=== PATIENT | male | born 1935 | race Caucasian/White ===

== ENCOUNTER 2018-10-14 11:13 | Observation (INO) | payer MEDICARE, OTHER ==
--- NOTE | 2018-10-14 11:40 | EDM.PDOC ---
ED HPI GENERAL MEDICAL PROBLEM - General Chief Complaint: Medication Administration Stated Complaint: UNKNOWN-AMBULANCE Time Seen by Provider: 10/14/18 11:25 Source of Information: Reports: Patient, EMS, Family History Limitations: Reports: No Limitations - History of Present Illness INITIAL COMMENTS - FREE TEXT/NARRATIVE: Patient comes emergency Department today by ambulance from home with an accidental medication administration. The patient has a history of dementia and lives at home with his . This morning he accidentally took his 's medication instead of his own. According to the he took 1 tablet of 50 mg metoprolol, 1 tablet of 40 mg lisinopril. This was an accidental ingestion. This happened about 8:00 this morning. They did not call the ambulance until later when it was difficult to wake him up. Upon EMS arrival the patient had a decreased level of consciousness and was difficult to arouse and did not respond to a painful sternal rub. Eventually he awoke on his own. While in the emergency room patient is asymptomatic. He denies any weakness dizziness lightheadedness. No chest pain or palpitations or shortness of breath. He states "I feel just fine". He has been receiving Iron transfusion recently for a lower GI bleed and not received any blood. Refuses to have a colonoscopy. Never had an RBC tagged. - Related Data Allergies Allergy/AdvReac Type Severity Reaction Status Date / Time No Known Allergies Allergy Verified 10/14/18 11:23 Home Meds: Home Meds Cholecalciferol (Vitamin D3) [Vitamin D3] 5,000 units PO DAILY 01/08/16 [History ] Cyanocobalamin (Vitamin B12) [Vitamin B12] 1,000 mcg PO DAILY 01/08/16 [History] Multivitamin [Multivitamins] 1 each PO DAILY 01/08/16 [History] Ascorbic Acid 500 mg PO DAILY 06/27/18 [History] Ferrous Sulfate 325 mg PO DAILY 06/27/18 [History] Finasteride [Proscar] 5 mg PO DAILY 06/27/18 [History] Tamsulosin HCl 0.8 mg PO DAILY 06/27/18 [History] Past Medical History HEENT History: Reports: Impaired Vision Other HEENT History: WEARS READERS. TOP DENTURE PLATE Cardiovascular History: Reports: High Cholesterol Respiratory History: Reports: None Gastrointestinal History: Reports: Colon Polyp, Other (See Below) Other Gastrointestinal History: occult blood in stools Genitourinary History: Reports: BPH, Prostate Disorder, Urinary Incontinence, Other (See Below) Other Genitourinary History: nocturia Musculoskeletal History: Reports: Arthritis, Back Pain, Chronic, Other (See Below) Other Musculoskeletal History: ruptured disk in lower back Neurological History: Reports: Alzheimers Disease Psychiatric History: Reports: Anxiety, Dementia Endocrine/Metabolic History: Reports: Vitamin D Deficiency Hematologic History: Reports: Anemia, B12 Deficiency, Blood Transfusion(s), Iron Deficiency Immunologic History: Reports: None Oncologic (Cancer) History: Reports: None Dermatologic History: Reports: Other (See Below) Other Dermatologic History: actinic keratosis - Infectious Disease History Infectious Disease History: Reports: Chicken Pox, Measles - Past Surgical History Head Surgeries/Procedures: Reports: None HEENT Surgical History: Reports: Cataract Surgery, Oral Surgery Cardiovascular Surgical History: Reports: None Respiratory Surgical History: Reports: None GI Surgical History: Reports: Appendectomy, Colonoscopy, EGD, Polypectomy Male Surgical History: Reports: Vasectomy Endocrine Surgical History: Reports: None Neurological Surgical History: Reports: None Musculoskeletal Surgical History: Reports: None Oncologic Surgical History: Reports: None Dermatological Surgical History: Reports: None Social & Family History - Family History Family Medical History: Noncontributory - Tobacco Use Smoking Status *Q: Former Smoker Used Tobacco, but Quit: Yes Month/Year Tobacco Last Used: 50 years ago - Caffeine Use Caffeine Use: Reports: Coffee Other Caffeine Use: 1-2 cups daily - Recreational Drug Use Recreational Drug Use: No ED ROS GENERAL - Review of Systems Review Of Systems: ROS reveals no pertinent complaints other than HPI. ED EXAM, GENERAL - Physical Exam Exam: See Below Exam Limited By: Altered Mental Status (History of dementia) General Appearance: Alert, No Apparent Distress Eye Exam: Bilateral Eye: EOMI, PERRL Ears: Normal External Exam, Normal TMs Nose: Normal Inspection, Normal Mucosa Throat/Mouth: Normal Inspection, Normal Lips Head: Atraumatic, Normocephalic Neck: Normal Inspection, Supple, Non-Tender Respiratory/Chest: No Respiratory Distress, Lungs Clear, Normal Breath Sounds, No Accessory Muscle Use, Chest Non-Tender Cardiovascular: Normal Peripheral Pulses, Regular Rate, Rhythm Peripheral Pulses: 2+: Radial (L), Radial (R), Posterior Tibial (L), Posterior Tibial (R), Dorsalis Pedis (L), Dorsalis Pedis (R) GI/Abdominal: Normal Bowel Sounds, Soft, Non-Tender Back Exam: Normal Inspection, Full Range of Motion Extremities: Normal Inspection, Non-Tender, Normal Capillary Refill Neurological: Alert, Normal Reflexes, Confused (History of dementia. Recognizes his , neighbor knows that he is in the hospital and [place]. Confused on the date and time.) Psychiatric: Flat Affect Skin Exam: Dry, Intact, Cool, Pallor (Quite pale from head to toe. ) Lymphatic: No Adenopathy EKG INTERPRETATION EKG Date: 10/14/18 Time: 11:41 Rhythm: NSR Rate (Beats/Min): 84 [place]: Normal P-Wave: Present QRS: Normal ST-T: Normal QT: Normal Course - Vital Signs Last Recorded V/S: Last Vital Signs Temp 36.8 C 10/14/18 12:46 Pulse 65 10/14/18 12:46 Resp 17 10/14/18 12:46 BP 92/39 L 10/14/18 12:46 Pulse Ox 100 10/14/18 12:46 - Orders/Labs/Meds Orders: Active Orders 24 hr Category Date Time Status EKG 12 Lead [EKG Documentation Completion] [RC] URGENT Care 10/14/18 11:33 Active TYPE AND SCREEN [BBK] Stat Lab 10/14/18 11:41 Received Lactated Ringers [Ringers, Lactated] 1,000 ml Med 10/14/18 12:43 Active IV .BOLUS Medication Orders Lactated Ringer's (Ringers, Lactated) 1,000 mls @ 500 mls/hr IV .BOLUS ONE Stop: 10/14/18 14:42 Last Admin: 10/14/18 12:47 Dose: 250 mls/hr Labs: Laboratory Tests 10/14/18 10/14/18 10/14/18 Range/Units 11:18 11:41 11:41 WBC 13.1 H (5.0-10.0) 10^3/uL RBC 3.63 L (4.6-6.2) 10^6/uL Hgb 7.8 L (14.0-18.0) g/dL Hct 25.8 L (40.0-54.0) % MCV 71.1 L D (80-100) fL MCH 21.5 L (27.0-34.0) pg MCHC 30.2 L (33.0-35.0) g/dL Plt Count 589 H (150-450) 10^3/uL Neut % (Auto) 87.2 H (42.2-75.2) % Lymph % (Auto) 8.7 L (20.5-50.1) % [place] % (Auto) 3.7 (2-8) % Eos % (Auto) 0.2 L (1.0-3.0) % Baso % (Auto) 0.2 (0.0-1.0) % Sodium 128 L (135-145) mmol/L Potassium 4.0 (3.6-5.0) mmol/L Chloride 95 L (101-111) mmol/L Carbon Dioxide 21.0 (21.0-31.0) mmol/L Anion Gap 16.0 BUN 14 (7-18) mg/dL Creatinine 1.1 (0.6-1.3) mg/dL Est Cr Clr Drug Dosing 49.99 mL/min Estimated GFR (MDRD) > 60 BUN/Creatinine Ratio 12.72 Glucose 161 H (74-105) mg/dL Calcium 8.2 L (8.4-10.2) mg/dl Total Bilirubin 0.4 (0.2-1.0) mg/dL AST 16 (10-42) IU/L ALT 11 (10-60) IU/L Alkaline Phosphatase 78 (42-121) IU/L Total Protein 7.0 (6.7-8.2) g/dl Albumin 2.6 L (3.2-5.5) g/dl Globulin 4.4 Albumin/Globulin Ratio 0.59 Urine Color Yellow (YELLOW) Urine Appearance Clear (CLEAR) Urine pH 7.0 (5.0-9.0) Ur Specific [place] 1.015 (1.005-1.030) Urine Protein Negative (NEGATIVE) Urine Glucose (UA) Negative (NEGATIVE) Urine Ketones Negative (NEGATIVE) Urine Occult Blood Negative (NEGATIVE) Urine Nitrite Negative (NEGATIVE) Urine Bilirubin Negative (NEGATIVE) Urine Urobilinogen 0.2 (0.2-1.0) mg/dL Ur Leukocyte Esterase Negative (NEGATIVE) Urine RBC Not seen /HPF Urine WBC Not seen (0-5/HPF) /HPF Ur Epithelial Cells Rare /HPF Amorphous Sediment Few (0/HPF) /HPF Urine Bacteria Few (0-FEW/HPF) /HPF Hyaline Casts Moderate H /LPF Urine Mucus Many H /LPF Meds: Medications Generic Name Dose Route Start Last Admin Trade Name Kerry PRN Reason Stop Dose Admin Lactated Ringer's 1,000 mls @ 500 mls/hr 10/14/18 12:43 10/14/18 12:47 Ringers, Lactated IV 10/14/18 14:42 250 mls/hr .BOLUS ONE Administration Discontinued Medications Generic Name Dose Route Start Last Admin Trade Name Freq PRN Reason Stop Dose Admin Lactated Ringer's 1,000 mls @ 250 mls/hr 10/14/18 12:54 10/14/18 12:59 Ringers, Lactated IV 10/14/18 16:53 Not Given .BOLUS ONE - Re-Assessments/Exams Free Text/Narrative Re-Assessment/Exam: 10/14/18 13:29 The patient is quite pale on presentation but has been receiving iron infusions over the past couple of weeks due to low volume blood loss due to a lower GI bleed for which he refuses a colonoscopy. He is alert and appropriate for his demented state. I did speak with poison control who advised that his peak time of the metoprolol has arty taken effect and as long as he is asymptomatic and be discharged home. His laboratory evaluation is rather unremarkable other than for anemia of hemoglobin 7.8. His most recent one was 7.2 September 21 of this month. His blood pressure is somewhat hypotensive with a systolic in the low 90s. In intermittent middle 80s systolically. He was given a 500 mL bolus with improvement of his blood pressure. I also typed and screened him. Due to his age fragility concerns of hypotension falls do not feel comfortable discharging this patient at the time. I spoke with the hospitalist cost reduction engineer who accepted the patient under his services. Patient and family are comfortable with this plan and her questions are answered. Departure - Departure Time of Disposition: 13:00 Disposition: Refer to Observation Clinical Impression: Lower gastrointestinal bleeding Accidental medication overdose Qualifiers: Encounter type: initial encounter Qualified Code(s): T50.901A - Poisoning by unspecified drugs, medicaments and biological substances, accidental ( unintentional), initial encounter - Discharge Information Forms: ED Department Discharge ED Communication - Discussed Case With (1) Discussed Case With (1): Admitting Provider (Spoke with Dr. Joyner HPI ER COURSE findings and concerns of anemia, medication ingestion accidentaly and hypotension. Concerns of falls and weakness needs observation. He accepted the patient in transfer.) - My Orders Last 24 Hours: My Active Orders 10/14/18 11:33 EKG 12 Lead [EKG Documentation Completion] [RC] URGENT 10/14/18 11:41 TYPE AND SCREEN [BBK] Stat 10/14/18 12:43 Lactated Ringers [Ringers, Lactated] 1,000 ml IV .BOLUS - Assessment/Plan Last 24 Hours: My Active Orders 10/14/18 11:33 EKG 12 Lead [EKG Documentation Completion] [RC] URGENT 10/14/18 11:41 TYPE AND SCREEN [BBK] Stat 10/14/18 12:43 Lactated Ringers [Ringers, Lactated] 1,000 ml IV .BOLUS Assessment:: Accidental OD of metoprolol and lisinopril Hypotension acute on chronic anemia Subacute lower GI bleed. Plan: Admit observation for continued monitoring and evaluation.
[2018-10-14 12:11] LABS: CHLORIDE,CL 95 mmol/L (101-111); SODIUM,NA 128 mmol/L (135-145)
[2018-10-14] MEDS ORDERED: Lactated Ringers 1,000 ML IV ONE ×2 (12:43→12:54)
[2018-10-14] MEDS ORDERED: Docusate Sodium 100 MG Cap PO PRN (15:00)
[2018-10-14] MEDS ORDERED: Acetaminophen 325 MG Tab PO PRN (15:00)
[2018-10-14] MEDS ORDERED: Magnesium Hydroxide 400 MG/5 ML Susp 30 ML Cup PO PRN (15:00)
--- NOTE | 2018-10-14 15:07 | PCM.HP ---
H&P History of Present Illness - General Date of Service: 10/14/18 Admit Problem/Dx: Admission Diagnosis/Problem Admission Diagnosis/Problem Hypotension due to drugs Source of Information: Patient, EMS, EMS Notes Reviewed, Family History Limitations: Reports: Other (Patient with dementia) - History of Present Illness Initial Comments - Free Text/Narative: [place] is a 83 y/o F with PMH of Dementia, BPH, iron defficiency anemia dur to chronic lower GI bleed. He was brought to the ER via EMS from home following an accidental medication administration. Patient has dementia could not give adequate history. History from EMR, family. Patient apparently took his medication this morning. According to the he took 1 tablet of 50 mg metoprolol, 1 tablet of 40 mg lisinopril by accident. This patient has dementia. This happened about 8:00 this morning. They did not call the ambulance until later when it was difficult to wake him up. Upon EMS arrival the patient had a decreased level of consciousness and was difficult to arouse and did not respond to a painful sternal rub. Eventually he awoke on his own. In the ER he denies any symptoms. His BP was low normal and was give a bolus R/ L. Patient is being admitted to the hospital at this for further monitoring and management. At the time of this evaluation patient denies any symptoms. He denies chest pain, SOB, weakness dizziness lightheadedness. Of note patient has h/o chronic Lower GI bleed and refuses colonoscopy. Anemia is managed by iron supplement and iron infusion. He had iron transfusion today. Onset of Symptoms: Reports: Sudden Duration of Symptoms: Reports: Hour(s): Improves with: Reports: None Worsens with: Reports: None Associated Symptoms: Reports: No Other Symptoms - Related Data Allergies/Adverse Reactions: Allergies Allergy/AdvReac Type Severity Reaction Status Date / Time No Known Allergies Allergy Verified 10/14/18 14:28 Home Medications: Home Meds Cholecalciferol (Vitamin D3) [Vitamin D3] 5,000 units PO DAILY 01/08/16 [History ] Cyanocobalamin (Vitamin B12) [Vitamin B12] 1,000 mcg PO DAILY 01/08/16 [History] Multivitamin [Multivitamins] 1 each PO DAILY 01/08/16 [History] Ascorbic Acid 500 mg PO DAILY 06/27/18 [History] Ferrous Sulfate 325 mg PO DAILY 06/27/18 [History] Finasteride [Proscar] 5 mg PO DAILY 06/27/18 [History] Tamsulosin HCl 0.8 mg PO DAILY 06/27/18 [History] Past Medical History HEENT History: Reports: Impaired Vision Other HEENT History: WEARS READERS. TOP DENTURE PLATE Cardiovascular History: Reports: High Cholesterol Respiratory History: Reports: None Gastrointestinal History: Reports: Colon Polyp, Other (See Below) Other Gastrointestinal History: occult blood in stools Genitourinary History: Reports: BPH, Prostate Disorder, Urinary Incontinence, Other (See Below) Other Genitourinary History: nocturia Musculoskeletal History: Reports: Arthritis, Back Pain, Chronic, Other (See Below) Other Musculoskeletal History: ruptured disk in lower back Neurological History: Reports: Alzheimers Disease Psychiatric History: Reports: Anxiety, Dementia Endocrine/Metabolic History: Reports: Vitamin D Deficiency Hematologic History: Reports: Anemia, B12 Deficiency, Blood Transfusion(s), Iron Deficiency Immunologic History: Reports: None Oncologic (Cancer) History: Reports: None Dermatologic History: Reports: Other (See Below) Other Dermatologic History: actinic keratosis - Infectious Disease History Infectious Disease History: Reports: Chicken Pox, Measles - Past Surgical History Head Surgeries/Procedures: Reports: None HEENT Surgical History: Reports: Cataract Surgery, Oral Surgery Cardiovascular Surgical History: Reports: None Respiratory Surgical History: Reports: None GI Surgical History: Reports: Appendectomy, Colonoscopy, EGD, Polypectomy Male Surgical History: Reports: Vasectomy Endocrine Surgical History: Reports: None Neurological Surgical History: Reports: None Musculoskeletal Surgical History: Reports: None Oncologic Surgical History: Reports: None Dermatological Surgical History: Reports: None Social & Family History - Family History Family Medical History: Noncontributory - Tobacco Use Smoking Status *Q: Former Smoker Used Tobacco, but Quit: Yes Month/Year Tobacco Last Used: 50 years ago Second Hand Smoke Exposure: No - Caffeine Use Caffeine Use: Reports: Coffee Other Caffeine Use: 1-2 cups daily - Recreational Drug Use Recreational Drug Use: No H&P Review of Systems - Review of Systems: Review Of Systems: See Below General: Reports: No Symptoms HEENT: Reports: No Symptoms Pulmonary: Reports: No Symptoms Cardiovascular: Reports: No Symptoms Gastrointestinal: Reports: No Symptoms Genitourinary: Reports: No Symptoms Musculoskeletal: Reports: No Symptoms Skin: Reports: No Symptoms Psychiatric: Reports: No Symptoms Neurological: Reports: No Symptoms Hematologic/Lymphatic: Reports: No Symptoms Immunologic: Reports: No Symptoms Exam - Exam Exam: See Below - Vital Signs Vital Signs: Last Vital Signs Temp 98.0 F 10/14/18 13:19 Pulse 75 10/14/18 13:28 Resp 24 H 10/14/18 13:28 BP 101/52 L 10/14/18 13:28 Pulse Ox 99 10/14/18 13:28 Weight: 168 lb 6.4 oz - Exam General: Alert, Oriented, 4 HEENT: PERRLA, Hearing Intact, Mucosa Moist & [place], Nares Patent, Normal Nasal Septum, Posterior Pharynx Clear, Conjunctiva Clear, EOMI, EACs Clear, TMs Clear Neck: Supple, Trachea Midline, 2 Lungs: Clear to Auscultation, Normal Respiratory Effort Cardiovascular: Regular Rate, Regular Rhythm GI/Abdominal Exam: Normal Bowel Sounds, Soft, Non-Tender, No Organomegaly, No Distention, No Abnormal Bruit, No Mass, Pelvis Stable (Male) Exam: No Hernia, Normal Inspection, Normal Prostate, Circumcised Rectal (Males) Exam: Normal Exam, Normal Rectal Tone, Prostate Normal Back Exam: Normal Inspection, Full Range of Motion, NT Extremities: Normal Inspection, Normal Range of Motion, Non-Tender, No Pedal Edema, Normal Capillary Refill Skin: Warm, Dry, Intact Neurological: Cranial Nerves Intact, Reflexes Equal Bilateral Neuro Extensive - Mental Status: Alert, Oriented x3, Normal Mood/Affect, Normal Cognition Neuro Extensive - Motor, Sensory, Reflexes: CN II-XII Intact, Normal Gait, Normal Reflexes Psychiatric: Alert, Normal Affect, Normal Mood - Patient Data Lab Results Last 24 hrs: Laboratory Results - last 24 hr 10/14/18 10/14/18 10/14/18 Range/Units 11:18 11:41 11:41 WBC 13.1 H (5.0-10.0) 10^3/uL RBC 3.63 L (4.6-6.2) 10^6/uL Hgb 7.8 L (14.0-18.0) g/dL Hct 25.8 L (40.0-54.0) % MCV 71.1 L D (80-100) fL MCH 21.5 L (27.0-34.0) pg MCHC 30.2 L (33.0-35.0) g/dL Plt Count 589 H (150-450) 10^3/uL Neut % (Auto) 87.2 H (42.2-75.2) % Lymph % (Auto) 8.7 L (20.5-50.1) % [place] % (Auto) 3.7 (2-8) % Eos % (Auto) 0.2 L (1.0-3.0) % Baso % (Auto) 0.2 (0.0-1.0) % Sodium 128 L (135-145) mmol/L Potassium 4.0 (3.6-5.0) mmol/L Chloride 95 L (101-111) mmol/L Carbon Dioxide 21.0 (21.0-31.0) mmol/L Anion Gap 16.0 BUN 14 (7-18) mg/dL Creatinine 1.1 (0.6-1.3) mg/dL Est Cr Clr Drug Dosing 49.99 mL/min Estimated GFR (MDRD) > 60 BUN/Creatinine Ratio 12.72 Glucose 161 H (74-105) mg/dL Calcium 8.2 L (8.4-10.2) mg/dl Total Bilirubin 0.4 (0.2-1.0) mg/dL AST 16 (10-42) IU/L ALT 11 (10-60) IU/L Alkaline Phosphatase 78 (42-121) IU/L Total Protein 7.0 (6.7-8.2) g/dl Albumin 2.6 L (3.2-5.5) g/dl Globulin 4.4 Albumin/Globulin Ratio 0.59 Urine Color Yellow (YELLOW) Urine Appearance Clear (CLEAR) Urine pH 7.0 (5.0-9.0) Ur Specific [place] 1.015 (1.005-1.030) Urine Protein Negative (NEGATIVE) Urine Glucose (UA) Negative (NEGATIVE) Urine Ketones Negative (NEGATIVE) Urine Occult Blood Negative (NEGATIVE) Urine Nitrite Negative (NEGATIVE) Urine Bilirubin Negative (NEGATIVE) Urine Urobilinogen 0.2 (0.2-1.0) mg/dL Ur Leukocyte Esterase Negative (NEGATIVE) Urine RBC Not seen /HPF Urine WBC Not seen (0-5/HPF) /HPF Ur Epithelial Cells Rare /HPF Amorphous Sediment Few (0/HPF) /HPF Urine Bacteria Few (0-FEW/HPF) /HPF Hyaline Casts Moderate H /LPF Urine Mucus Many H /LPF Blood Type Gel Antibody Screen 10/14/18 Range/Units 11:41 WBC (5.0-10.0) 10^3/uL RBC (4.6-6.2) 10^6/uL Hgb (14.0-18.0) g/dL Hct (40.0-54.0) % MCV (80-100) fL MCH (27.0-34.0) pg MCHC (33.0-35.0) g/dL Plt Count (150-450) 10^3/uL Neut % (Auto) (42.2-75.2) % Lymph % (Auto) (20.5-50.1) % [place] % (Auto) (2-8) % Eos % (Auto) (1.0-3.0) % Baso % (Auto) (0.0-1.0) % Sodium (135-145) mmol/L Potassium (3.6-5.0) mmol/L Chloride (101-111) mmol/L Carbon Dioxide (21.0-31.0) mmol/L Anion Gap BUN (7-18) mg/dL Creatinine (0.6-1.3) mg/dL Est Cr Clr Drug Dosing mL/min Estimated GFR (MDRD) BUN/Creatinine Ratio Glucose (74-105) mg/dL Calcium (8.4-10.2) mg/dl Total Bilirubin (0.2-1.0) mg/dL AST (10-42) IU/L ALT (10-60) IU/L Alkaline Phosphatase (42-121) IU/L Total Protein (6.7-8.2) g/dl Albumin (3.2-5.5) g/dl Globulin Albumin/Globulin Ratio Urine Color (YELLOW) Urine Appearance (CLEAR) Urine pH (5.0-9.0) Ur Specific [place] (1.005-1.030) Urine Protein (NEGATIVE) Urine Glucose (UA) (NEGATIVE) Urine Ketones (NEGATIVE) Urine Occult Blood (NEGATIVE) Urine Nitrite (NEGATIVE) Urine Bilirubin (NEGATIVE) Urine Urobilinogen (0.2-1.0) mg/dL Ur Leukocyte Esterase (NEGATIVE) Urine RBC /HPF Urine WBC (0-5/HPF) /HPF Ur Epithelial Cells /HPF Amorphous Sediment (0/HPF) /HPF Urine Bacteria (0-FEW/HPF) /HPF Hyaline Casts /LPF Urine Mucus /LPF Blood Type A POSITIVE Gel Antibody Screen Negative Result Diagrams: 10/14/18 11:41 10/14/18 11:41 - Problem List (1) Accidental medication overdose SNOMED Code(s): 71713455 ICD Code: T50.901A - POISONING BY UNSP DRUG/MEDS/BIOL SUBST, ACCIDENTAL, INIT Status: Acute Current Visit: Yes Qualifiers: Encounter type: initial encounter Qualified Code(s): T50.901A - Poisoning by unspecified drugs, medicaments and biological substances, accidental ( unintentional), initial encounter (2) Lower gastrointestinal bleeding SNOMED Code(s): 78297758 ICD Code: K92.2 - GASTROINTESTINAL HEMORRHAGE, UNSPECIFIED Status: Acute Current Visit: Yes (3) Chronic low back pain with right-sided sciatica SNOMED Code(s): 489232867 ICD Code: M54.41 - LUMBAGO WITH SCIATICA, RIGHT SIDE; G89.29 - OTHER CHRONIC PAIN Status: Acute Current Visit: No Qualifiers: Back pain laterality: right Qualified Code(s): M54.41 - Lumbago with sciatica, right side; G89.29 - Other chronic pain (4) Hyponatremia SNOMED Code(s): 65838436 ICD Code: E87.1 - HYPO-OSMOLALITY AND HYPONATREMIA Status: Acute Current Visit: Yes (5) Hypoalbuminemia SNOMED Code(s): 147464298 ICD Code: E88.09 - OTH DISORDERS OF PLASMA-PROTEIN METABOLISM, NEC Status: Acute Current Visit: Yes Problem List Initiated/Reviewed/Updated: Yes Orders Last 24hrs: Active Orders 24 hr Category Date Time Status Patient Status [ADT] Routine ADT 10/14/18 15:00 Ordered Antiembolic Devices [RC] .Routine Care 10/14/18 15:04 Ordered EKG 12 Lead [EKG Documentation Completion] [RC] URGENT Care 10/14/18 11:33 Active Intake and Output [RC] QSHIFT Care 10/14/18 15:03 Ordered Notify Provider Vital Signs [RC] ASDIRECTED Care 10/14/18 15:03 Ordered Up With Assistance [RC] ASDIRECTED Care 10/14/18 15:00 Ordered VTE/DVT Education [RC] PER UNIT ROUTINE Care 10/14/18 15:04 Ordered Vital Signs [RC] Q4H Care 10/14/18 15:00 Ordered Regular Diet [DIET] Diet 10/14/18 Dinner Ordered Acetaminophen [Tylenol] Med 10/14/18 15:00 Ordered 650 mg PO Q6H PRN Docusate Sodium [Colace] Med 10/14/18 15:00 Ordered 100 mg PO DAILY PRN Finasteride [Proscar] Med 10/15/18 09:00 Ordered 5 mg PO DAILY Heparin Sodium Med 10/14/18 15:00 Ordered 5,000 units SUBCUT Q12H Magnesium Hydroxide [Milk of Magnesia] Med 10/14/18 15:00 Ordered 30 ml PO BID PRN Tamsulosin [Flomax] Med 10/15/18 09:00 Ordered 0.8 mg PO DAILY DVT/VTE Prophylaxis Reflex [OM.PC] Routine Oth 10/14/18 15:00 Ordered Resuscitation Status Routine Resus Stat 10/14/18 15:00 Ordered Medication Orders Acetaminophen (Tylenol) 650 mg PO Q6H PRN PRN Reason: Pain (mild 1-3 )/fever Docusate Sodium (Colace) 100 mg PO DAILY PRN PRN Reason: Constipation Finasteride (Proscar) 5 mg PO DAILY TAMMY Heparin Sodium (Porcine) (Heparin Sodium) 5,000 units SUBCUT Q12H TAMMY Magnesium Hydroxide (Milk Of Magnesia) 30 ml PO BID PRN PRN Reason: Constipation Tamsulosin HCl (Flomax) 0.8 mg PO DAILY TAMMY Assessment/Plan Comment:: Accidental ingestion of medication Patient report to one tablet of 's metoprolol and lisinopril He is hemodynamically stable Monitor vitals closely Hyponatremia Moderate. Patient a symptomatic Monitor IVF N/S Leukocytosis Likely reactive repeat cbc in the AM Hypoalbuminemia ensure adequate intake Dietary supplement Chronic anemia due to GI blood loss Patient declined colonoscopy evaluation in the past he is on iron supplement and iron infusion Will continue same. Dementia Continue homedication BPH Continue home medications Regular diet
[2018-10-14] MEDS ORDERED: Melatonin 3 MG Tab PO PRN (16:14)
[2018-10-14] MEDS ORDERED: Sodium Chloride 0.9% 1,000 ML IV SCH (17:00)
[2018-10-14] MEDS ORDERED: Finasteride 5 MG Tab **OWN MED PO SCH (19:00)
[2018-10-14] MEDS ORDERED: Tamsulosin 0.4 MG Cap.ER **OWN MED PO SCH (19:00)
[2018-10-14] MEDS: Heparin Sodium 5,000 Units/ML Vial SUBCUT SCH (20:40)
[2018-10-15 08:16] VITALS: BP 125/44
[2018-10-15] MEDS: Heparin Sodium 5,000 Units/ML Vial SUBCUT SCH (09:56)
--- NOTE | 2018-10-15 10:16 | PCM.DCSUM1 ---
Discharge Summary - Hospital Course Free Text/Narrative:: Orlando is a 83 y/o F with PMH of Dementia, BPH, iron defficiency anemia dur to chronic lower GI bleed. He was brought to the ER via EMS from home following an accidental medication administration. According to the he took 1 tablet of 50 mg metoprolol, 1 tablet of 40 mg lisinopril by accident. This patient has dementia. This happened about 8:00 this morning. They did not call the ambulance until later when it was difficult to wake him up. Upon EMS arrival the patient had a decreased level of consciousness and was difficult to arouse and did not respond to a painful sternal rub. Eventually he awoke on his own. In the ER he denies any symptoms. His BP was low normal and was give a bolus R/ L. Patient was admitted to the hospital for monitoring and management. He stay was uncomplicated. He is being discharge home in stable condition. He will follow up with PCP on Wednesday. Diagnosis: Stroke: No - Discharge Data Discharge Date: 10/15/18 Discharge Disposition: Home, Self-Care 01 Condition: Good - Discharge Diagnosis/Problem(s) (1) Accidental medication overdose SNOMED Code(s): 39485073 ICD Code: T50.901A - POISONING BY UNSP DRUG/MEDS/BIOL SUBST, ACCIDENTAL, INIT Status: Acute Current Visit: Yes Qualifiers: Encounter type: initial encounter Qualified Code(s): T50.901A - Poisoning by unspecified drugs, medicaments and biological substances, accidental ( unintentional), initial encounter (2) Lower gastrointestinal bleeding SNOMED Code(s): 38280619 ICD Code: K92.2 - GASTROINTESTINAL HEMORRHAGE, UNSPECIFIED Status: Acute Current Visit: Yes (3) Chronic low back pain with right-sided sciatica SNOMED Code(s): 634360616 ICD Code: M54.41 - LUMBAGO WITH SCIATICA, RIGHT SIDE; G89.29 - OTHER CHRONIC PAIN Status: Acute Current Visit: No Qualifiers: Back pain laterality: right Qualified Code(s): M54.41 - Lumbago with sciatica, right side; G89.29 - Other chronic pain (4) Hyponatremia SNOMED Code(s): 63984229 ICD Code: E87.1 - HYPO-OSMOLALITY AND HYPONATREMIA Status: Acute Current Visit: Yes (5) Hypoalbuminemia SNOMED Code(s): 093268239 ICD Code: E88.09 - OTH DISORDERS OF PLASMA-PROTEIN METABOLISM, NEC Status: Acute Current Visit: Yes - Patient Instructions Diet: Heart Healthy Diet Activity: As Tolerated Driving: Do Not Drive Showering/Bathing: May Shower Notify Provider of: Fever, Increased Pain, Swelling and Redness, Drainage, Nausea and/or Vomiting - Discharge Plan *PRESCRIPTION DRUG MONITORING PROGRAM REVIEWED*: Not Applicable *COPY OF PRESCRIPTION DRUG MONITORING REPORT IN PATIENT CARRIE: Not Applicable Home Medications: Home Meds Cholecalciferol (Vitamin D3) [Vitamin D3] 5,000 units PO 189901/08/16 [History] Cyanocobalamin (Vitamin B12) [Vitamin B12] 1,000 mcg PO 189901/08/16 [History] Multivitamin [Multivitamins] 1 each PO 189901/08/16 [History] Ascorbic Acid 500 mg PO 189906/27/18 [History] Ferrous Sulfate 325 mg PO 189906/27/18 [History] Finasteride [Proscar] 5 mg PO 189906/27/18 [History] Tamsulosin HCl 0.8 mg PO 189906/27/18 [History] Oxygen Therapy Mode: Room Air Patient Handouts: Accidental Overdose, Hyponatremia, [id number], Lower Gastrointestinal Bleeding Referrals: Kayli Trujillo, [facility] [Primary Care Provider] - - Discharge Summary/Plan Comment DC Time >30 min.: Yes - General Info Date of Service: 10/15/18 Admission Dx/Problem (Free Text: Admission Diagnosis/Problem Admission Diagnosis/Problem Hypotension due to drugs Functional Status: Reports: Pain Controlled - Review of Systems General: Reports: No Symptoms HEENT: Reports: No Symptoms Pulmonary: Reports: No Symptoms Cardiovascular: Reports: No Symptoms Gastrointestinal: Reports: No Symptoms Genitourinary: Reports: No Symptoms Musculoskeletal: Reports: No Symptoms Skin: Reports: No Symptoms Neurological: Reports: No Symptoms Psychiatric: Reports: No Symptoms - Patient Data Vitals - Most Recent: Last Vital Signs Temp 98.7 F 10/15/18 08:15 Pulse 89 10/15/18 08:15 Resp 20 10/15/18 08:15 BP 125/44 L 10/15/18 08:15 Pulse Ox 100 03/02/19 08:15 Weight - Most Recent: 168 lb 6.4 oz I&O - Last 24 hours: Intake & Output 10/14/18 10/15/18 10/15/18 22:59 06:59 14:59 Intake Total 2225 1560 Balance 2225 1560 Lab Results - Last 24 hrs: Laboratory Results - last 24 hr 10/14/18 10/14/18 10/14/18 Range/Units 11:18 11:41 11:41 WBC 13.1 H (5.0-10.0) 10^3/uL RBC 3.63 L (4.6-6.2) 10^6/uL Hgb 7.8 L (14.0-18.0) g/dL Hct 25.8 L (40.0-54.0) % MCV 71.1 L D (80-100) fL MCH 21.5 L (27.0-34.0) pg MCHC 30.2 L (33.0-35.0) g/dL Plt Count 589 H (150-450) 10^3/uL Neut % (Auto) 87.2 H (42.2-75.2) % Lymph % (Auto) 8.7 L (20.5-50.1) % Bennett % (Auto) 3.7 (2-8) % Eos % (Auto) 0.2 L (1.0-3.0) % Baso % (Auto) 0.2 (0.0-1.0) % Sodium 128 L (135-145) mmol/L Potassium 4.0 (3.6-5.0) mmol/L Chloride 95 L (101-111) mmol/L Carbon Dioxide 21.0 (21.0-31.0) mmol/L Anion Gap 16.0 BUN 14 (7-18) mg/dL Creatinine 1.1 (0.6-1.3) mg/dL Est Cr Clr Drug Dosing 49.99 mL/min Estimated GFR (MDRD) > 60 BUN/Creatinine Ratio 12.72 Glucose 161 H (74-105) mg/dL Calcium 8.2 L (8.4-10.2) mg/dl Total Bilirubin 0.4 (0.2-1.0) mg/dL AST 16 (10-42) IU/L ALT 11 (10-60) IU/L Alkaline Phosphatase 78 (42-121) IU/L Total Protein 7.0 (6.7-8.2) g/dl Albumin 2.6 L (3.2-5.5) g/dl Globulin 4.4 Albumin/Globulin Ratio 0.59 Urine Color Yellow (YELLOW) Urine Appearance Clear (CLEAR) Urine pH 7.0 (5.0-9.0) Ur Specific [place] 1.015 (1.005-1.030) Urine Protein Negative (NEGATIVE) Urine Glucose (UA) Negative (NEGATIVE) Urine Ketones Negative (NEGATIVE) Urine Occult Blood Negative (NEGATIVE) Urine Nitrite Negative (NEGATIVE) Urine Bilirubin Negative (NEGATIVE) Urine Urobilinogen 0.2 (0.2-1.0) mg/dL Ur Leukocyte Esterase Negative (NEGATIVE) Urine RBC Not seen /HPF Urine WBC Not seen (0-5/HPF) /HPF Ur Epithelial Cells Rare /HPF Amorphous Sediment Few (0/HPF) /HPF Urine Bacteria Few (0-FEW/HPF) /HPF Hyaline Casts Moderate H /LPF Urine Mucus Many H /LPF Blood Type Gel Antibody Screen 10/14/18 Range/Units 11:41 WBC (5.0-10.0) 10^3/uL RBC (4.6-6.2) 10^6/uL Hgb (14.0-18.0) g/dL Hct (40.0-54.0) % MCV (80-100) fL MCH (27.0-34.0) pg MCHC (33.0-35.0) g/dL Plt Count (150-450) 10^3/uL Neut % (Auto) (42.2-75.2) % Lymph % (Auto) (20.5-50.1) % Bennett % (Auto) (2-8) % Eos % (Auto) (1.0-3.0) % Baso % (Auto) (0.0-1.0) % Sodium (135-145) mmol/L Potassium (3.6-5.0) mmol/L Chloride (101-111) mmol/L Carbon Dioxide (21.0-31.0) mmol/L Anion Gap BUN (7-18) mg/dL Creatinine (0.6-1.3) mg/dL Est Cr Clr Drug Dosing mL/min Estimated GFR (MDRD) BUN/Creatinine Ratio Glucose (74-105) mg/dL Calcium (8.4-10.2) mg/dl Total Bilirubin (0.2-1.0) mg/dL AST (10-42) IU/L ALT (10-60) IU/L Alkaline Phosphatase (42-121) IU/L Total Protein (6.7-8.2) g/dl Albumin (3.2-5.5) g/dl Globulin Albumin/Globulin Ratio Urine Color (YELLOW) Urine Appearance (CLEAR) Urine pH (5.0-9.0) Ur Specific [place] (1.005-1.030) Urine Protein (NEGATIVE) Urine Glucose (UA) (NEGATIVE) Urine Ketones (NEGATIVE) Urine Occult Blood (NEGATIVE) Urine Nitrite (NEGATIVE) Urine Bilirubin (NEGATIVE) Urine Urobilinogen (0.2-1.0) mg/dL Ur Leukocyte Esterase (NEGATIVE) Urine RBC /HPF Urine WBC (0-5/HPF) /HPF Ur Epithelial Cells /HPF Amorphous Sediment (0/HPF) /HPF Urine Bacteria (0-FEW/HPF) /HPF Hyaline Casts /LPF Urine Mucus /LPF Blood Type A POSITIVE Gel Antibody Screen Negative Med Orders - Current: Current Medications Acetaminophen (Tylenol) 650 mg PO Q6H PRN PRN Reason: Pain (mild 1-3 )/fever Last Admin: 10/14/18 20:39 Dose: 650 mg Docusate Sodium (Colace) 100 mg PO DAILY PRN PRN Reason: Constipation Heparin Sodium (Porcine) (Heparin Sodium) 5,000 units SUBCUT Q12HR PENDING SALE TO [facility] Last Admin: 10/15/18 09:56 Dose: Not Given Sodium Chloride (Normal Saline) 1,000 mls @ 75 mls/hr IV ASDIRECTED PENDING SALE TO [facility] Last Admin: 10/14/18 17:08 Dose: 75 mls/hr Magnesium Hydroxide (Milk Of Magnesia) 30 ml PO BID PRN PRN Reason: Constipation Melatonin (Melatonin) 3 mg PO BEDTIME PRN PRN Reason: insomnia Last Admin: 10/14/18 20:40 Dose: 3 mg Finasteride 5 Mg Tab (Own Med) 1 each PO DAILY@1900 PENDING SALE TO [facility] Last Admin: 10/14/18 18:39 Dose: 1 each Tamsulosin 0.4 Mg (Cap.Er Own Med) 1 each PO DAILY@1900 PENDING SALE TO [facility] Last Admin: 10/14/18 18:38 Dose: 1 each Discontinued Medications Lactated Ringer's (Ringers, Lactated) 1,000 mls @ 500 mls/hr IV .BOLUS ONE Stop: 10/14/18 14:42 Last Infusion: 10/14/18 17:08 Dose: Infused Lactated Ringer's (Ringers, Lactated) 1,000 mls @ 250 mls/hr IV .BOLUS ONE Stop: 10/14/18 16:53 Last Admin: 10/14/18 12:59 Dose: Not Given - Exam General: Reports: Alert, Oriented HEENT: Reports: Pupils Equal, Pupils Reactive, EOMI, Mucous Membr. Moist/[place] Neck: Reports: Supple Lungs: Reports: Clear to Auscultation, Normal Respiratory Effort Cardiovascular: Reports: Regular Rate, Regular Rhythm GI/Abdominal Exam: Normal Bowel Sounds, Soft, Non-Tender, No Organomegaly, No Distention, No Abnormal Bruit, No Mass, Pelvis Stable (Male) Exam: No Hernia, Normal Inspection, Normal Prostate, Circumcised Rectal (Males) Exam: Normal Exam, Normal Rectal Tone, Prostate Normal Back Exam: Reports: Normal Inspection, Full Range of Motion Extremities: Normal Inspection, Normal Range of Motion, Non-Tender, No Pedal Edema, Normal Capillary Refill Skin: Reports: Warm, Dry, Intact Wound/Incisions: Reports: Healing Well Neurological: Reports: No New Focal Deficit Psy/Mental Status: Reports: Alert, Normal Affect, Normal Mood
== END 2018-10-15 10:40 | disposition home or self-care (01) ==
LOC: DL.ED 11:13 → UNDOADMOB 13:15 → DL.MS 13:15
PROVIDERS: ADMIT Student in an Organized Health Care Education/Training Program; ATTEND Student in an Organized Health Care Education/Training Program
DX: T44.7X1A Poisoning by beta-adrenoreceptor antagonists, accidental (unintentional), initial encounter (principal); T46.4X1A Poisoning by angiotensin-converting-enzyme inhibitors, accidental (unintentional), initial encounter; I95.2 Hypotension due to drugs; R41.82 Altered mental status, unspecified; E87.1 Hypo-osmolality and hyponatremia; E88.09 Other disorders of plasma-protein metabolism, not elsewhere classified; D72.829 Elevated white blood cell count, unspecified; D50.0 Iron deficiency anemia secondary to blood loss (chronic); K92.2 Gastrointestinal hemorrhage, unspecified; G30.9 Alzheimer's disease, unspecified; F02.80 Dementia in other diseases classified elsewhere, unspecified severity, without behavioral disturbance, psychotic disturbance, mood disturbance, and anxiety; G89.29 Other chronic pain; M54.41 Lumbago with sciatica, right side; N40.0 Benign prostatic hyperplasia without lower urinary tract symptoms; E53.8 Deficiency of other specified B group vitamins; Z87.891 Personal history of nicotine dependence; Z79.899 Other long term (current) drug therapy
CPT/HCPCS: 36415; 80053; 81001; 85025; 86850; 86900; 86901; 93005; 96360; 99285; A9270; J1644; J7030; J7120; 96361; 96372; G0378